=== PATIENT | male | born 1960 | race Two or more races ===

== ENCOUNTER 2022-07-08 15:53 | Emergency (ER) | payer MEDICAID, OTHER ==
[~2022-07-08] VITALS: Ht 177.8 cm; Wt 65.9 kg
[2022-07-08] MEDS ORDERED: VANCOMYCIN 1GM/250ML 250 ML IV ONE (16:30)
[2022-07-08] MEDS ORDERED: PIPERACILLIN-TAZOB 3.375GM 100 ML IV ONE (16:30)
[2022-07-08] MEDS ORDERED: CLINDAMYCIN 600MG IV 50 ML IV ONE (16:30)
[2022-07-08 17:07] LABS: Hemoglobin 17.4 g/dL (13.5-17.5); Nucleated Red Blood Cells % 0.4 %
[2022-07-08 17:33] LABS: Basophils # (auto) 0.1 10 ^3/uL (0-0.2); Basophils % (auto) 0.7 % (0.0-2.0); Eosinophils # (auto) 0.1 10 ^3/uL (0-0.8); Eosinophils % (auto) 0.5 % (0.0-7.0); Hematocrit 49.3 % (41.0-53.0); Lymphocytes # (auto) 1.6 10 ^3/uL (0.4-5.4); Lymphocytes % (auto) 9.9 % (10.0-50.0); Mean Corpuscular Hemoglobin 33.7 pg (28.0-32.0); Mean Corpuscular Hgb Conc. 35.3 g/dL (32.0-36.0); Mean Corpuscular Volume 95.5 fL (80.0-100.0); Monocytes # (auto) 1.8 10 ^3/uL (0-1.3); Monocytes % (auto) 11.3 % (0.0-12.0); Neutrophils # (auto) 12.4 10 ^3/uL (1.6-8.6); Neutrophils % (auto) 77.6 % (37.0-80.0); Red Blood Cells 5.16 10^6/uL (4.5-5.90)
[2022-07-08 17:36] LABS: Alanine Aminotransferase 34 U/L (16-61); Albumin 3.1 g/dL (3.4-5.0); Alkaline Phosphatase 108 U/L (45-117); Anion Gap 5 (5-15); Aspartate Aminotransferase 29 U/L (15-37); BUN/Creatinine Ratio 19.3; Bilirubin, Total 0.6 mg/dL (0.2-1.0); Blood Urea Nitrogen 17 mg/dL (7-18); Calcium 8.5 mg/dL (8.5-10.1); Carbon Dioxide 30 mmol/L (21-32); Chloride 99 mmol/L (98-107); GFR African American 112 mL/min; GFR Non-African American 93 mL/min; Glucose 102 mg/dL (74-106); Potassium 4.4 mmol/L (3.5-5.1); Sodium 134 mmol/L (136-145); Total Protein 7.8 g/dL (6.4-8.2)
[2022-07-08] MEDS ORDERED: IOHEXOL 350 MG/ML 100ML IJ ONE (20:28)
[2022-07-08] MEDS ORDERED: MORPHINE SULFATE INJ 2 MG/ml SYRG IV ONE (20:30)
[2022-07-08] MEDS ORDERED: ONDANSETRON HCL 4 MG/2 ML VIAL IV ONE (20:30)
[2022-07-09] MEDS ORDERED: CLINDAMYCIN 900MG IV 50 ML IV ONE (10:15)
[2022-07-09] MEDS ORDERED: PIPERACILLIN-TAZOB 3.375GM 100 ML IV ONE (10:15)
[2022-07-09] MEDS ORDERED: MORPHINE SULFATE 4 MG/ML SYR/VIAL IV ONE (10:15)
[2022-07-09 11:05] LABS: Basophils # (auto) 0.1 10 ^3/uL (0-0.2); Basophils % (auto) 0.7 % (0.0-2.0); Eosinophils # (auto) 0 10 ^3/uL (0-0.8); Eosinophils % (auto) 0.2 % (0.0-7.0); Hematocrit 47.8 % (41.0-53.0); Hemoglobin 16.4 g/dL (13.5-17.5); Lymphocytes # (auto) 1.7 10 ^3/uL (0.4-5.4); Lymphocytes % (auto) 9.6 % (10.0-50.0); Mean Corpuscular Hemoglobin 32.8 pg (28.0-32.0); Mean Corpuscular Hgb Conc. 34.3 g/dL (32.0-36.0); Mean Corpuscular Volume 95.5 fL (80.0-100.0); Monocytes # (auto) 2.2 10 ^3/uL (0-1.3); Monocytes % (auto) 12.5 % (0.0-12.0); Neutrophils # (auto) 13.4 10 ^3/uL (1.6-8.6); Nucleated Red Blood Cells % 0.2 %; White Blood Cell 17.4 10^3/uL (4.4-10.8)
[2022-07-09 11:15] LABS: Albumin 3.3 g/dL (3.4-5.0); BUN/Creatinine Ratio 19.4; Calcium 8.6 mg/dL (8.5-10.1); Potassium 4.1 mmol/L (3.5-5.1)
[2022-07-09 11:24] LABS: Bilirubin, Total 1.6 mg/dL (0.2-1.0); CRP High Sensitivity 10.8 mg/dL (< 0.3); Total Protein 7.9 g/dL (6.4-8.2)
[2022-07-09 12:10] VITALS: BP 139/77
[2022-07-09] MEDS: VANCOMYCIN 1GM/250ML 250 ML IV ONE ×3 (12:14→12:25)
[2022-07-09 12:44] LABS: INR 1.06 (0.9-1.15); Partial Thromboplastin Time 31.3 sec (24.6-33.4)
== END 2022-07-09 12:36 | disposition short-term general hospital (02) ==
LOC: ER 15:53
DX: L03.011 Cellulitis of right finger (principal); M72.6 Necrotizing fasciitis; Z20.822 Contact with and (suspected) exposure to COVID-19
CPT/HCPCS: 36415; 73130; 73201; 80053; 82550; 83605; 85025; 85610; 85652; 85730; 86141; 87040; 87426; 96365; 96366; 96367; 96368; 96375; 96376; 99285; J2270; J2405; J2543; J3370; J3490; Q9967